=== PATIENT | female | born 1985 | race Asian ===

== ENCOUNTER 2016-12-23 14:38 | Outpatient (CLI) | payer OTHER ==
[2016-12-23 15:34] LABS: BASOPHILS # (AUTO) 0.1 10^3/uL (0.0-0.1); BASOPHILS % (AUTO) 0.8 %; EOSINOPHILS % (AUTO) 0.2 %; HCT - HEMATOCRIT 37.2 % (37.0-47.0); HGB - HEMOGLOBIN 13.2 g/dL (12.0-16.0); LYMPHOCYTES % (AUTO) 18.6 %; MEAN CORPUSCULAR HGB CONC 35.5 g/dL (32.0-36.0); MEAN CORPUSCULAR VOLUME 87.4 fL (81.0-99.0); MEAN PLATELET VOLUME 8.5 fL (7.9-10.8); MONOCYTES # (AUTO) 0.8 10^3/uL (0.0-1.0); NEUTROPHILS # (AUTO) 7.9 10^3/uL (1.5-6.6); NEUTROPHILS % (AUTO) 73.4 %; RED BLOOD COUNT 4.26 10^6/uL (4.20-5.40); RED CELL DISTRIBUTION WIDTH 13.1 % (12.0-15.0); UNCORRECTED WHITE BLOOD COUNT 10.8 x10^3/uL; WHITE BLOOD COUNT 10.8 x10^3/uL (4.8-10.8)
[2016-12-23 15:37] LABS: BILIRUBIN,URINE NEGATIVE (NEGATIVE); PH,URINE 7.5 PH (5.0-7.5)
[2016-12-23 15:44] LABS: WBC,URINE 0-3 /HPF (0-5)
[2016-12-29 20:01] LABS: TEST RESULT REPORT (())
== END 2016-12-23 14:39 | disposition home or self-care (01) ==
LOC: LAB 14:38
PROVIDERS: ATTEND Obstetrics & Gynecology
DX: Z36 Encounter for antenatal screening of mother (principal)
CPT/HCPCS: 36415; 81001; 81599; 85025; 86762; 86780; 86850; 86900; 86901; 87340; 87389

== ENCOUNTER 2017-01-17 11:20 | Outpatient (CLI) | payer OTHER ==
[2017-01-21 17:46] LABS: TEST RESULT REPORT (())
== END 2017-01-17 11:21 | disposition home or self-care (01) ==
LOC: LAB 11:20
PROVIDERS: ATTEND Obstetrics & Gynecology
DX: Z36 Encounter for antenatal screening of mother (principal)
CPT/HCPCS: 36415; 81599; 84163

== ENCOUNTER 2017-02-14 11:47 | Outpatient (CLI) | payer OTHER ==
[2017-02-21 14:11] LABS: TEST RESULT REPORT (())
== END 2017-02-14 11:48 | disposition home or self-care (01) ==
LOC: LAB 11:47
PROVIDERS: ATTEND Obstetrics & Gynecology
DX: Z36 Encounter for antenatal screening of mother (principal)
CPT/HCPCS: 36415; 81511; 81599; 84163

== ENCOUNTER 2017-03-14 12:17 | Outpatient (CLI) | payer OTHER ==
--- NOTE | 2017-03-15 10:55 | Ultrasound Report ---
OB ULTRASOUND: 03/14/2017 CLINICAL INDICATION: anatomy. TECHNIQUE: Real-time scanning was performed with accounts receivable representative static images obtained. LAST MENSTRUAL PERIOD 10/25/2016 Clinical Age 20 weeks 0 days US Age 19 weeks 3 days EFW Hadlock 304 g EFW% Hadlock --- Heart Rate 150 bpm EDC 08/01/2017 US EDC 08/05/2017 BPD [place] 19 weeks 1 day; Mean mm 43.4 HC [place] 19 weeks 0 days; Mean mm 161.5 AC [place] 20 weeks 1 day; Mean mm 149.1 FL Hadlock 19 weeks 2 days; Mean mm 29.9 Presentation breech Placental Location posterior Cervical Length 4.6 cm Amniotic Fluid 13.8 cm FINDINGS: There is a single viable intrauterine gestation, in breech presentation. heart rate is 150 BPM. The placenta is posterior, and low lying. Amniotic fluid volume is normal, with an ALDO of 13.8. By size, the fetus measures 19.5 weeks (20.0 weeks by LMP). The following anatomic structures were visualized and appear normal: The intracranial contents, including the ventricles and posterior fossa; the orbits; the spine; the heart, including 4 chamber view and outflow tracts, and diaphragm; the abdominal contents, including the stomach , the bilateral kidneys, and urinary bladder, as well as a normal 3 vessel cord insertion; 4 limbs. Visualization of the nose and lips is limited by positioning. No free fluid or adnexal lesion is appreciated. IMPRESSION: SINGLE VIABLE INTRAUTERINE GESTATION, MEASURING 19.5 WEEKS BY SIZE. LIMITED VISUALIZATION OF THE NOSE AND LIPS, DUE TO POSITIONING. POSTERIOR , LOW LYING PLACENTA. THIS SHOULD BE REEVALUATED IN THE THIRD TRIMESTER. MTDD
== END 2017-03-14 12:18 | disposition home or self-care (01) ==
LOC: DI 12:17
PROVIDERS: ATTEND Obstetrics & Gynecology
DX: Z34.82 Encounter for supervision of other normal pregnancy, second trimester (principal)
CPT/HCPCS: 76811

== ENCOUNTER 2017-04-11 11:17 | Outpatient (CLI) | payer OTHER | END 2017-04-11 11:18 | disposition home or self-care (01) | LOC: LAB 11:17 | PROVIDERS: ATTEND Obstetrics & Gynecology | DX: Z36 Encounter for antenatal screening of mother (principal) | CPT/HCPCS: 36415; 82950; 86850 ==

== ENCOUNTER 2017-04-12 08:40 | Outpatient (CLI) | payer OTHER ==
[2017-04-12 10:24] LABS: HCT - HEMATOCRIT 35.8 % (37.0-47.0); HGB - HEMOGLOBIN 12.2 g/dL (12.0-16.0); MEAN CORPUSCULAR HEMOGLOBIN 31.2 pg (27.0-31.0); MEAN CORPUSCULAR HGB CONC 34.2 g/dL (32.0-36.0); MEAN CORPUSCULAR VOLUME 91.3 fL (81.0-99.0); MEAN PLATELET VOLUME 7.6 fL (7.9-10.8); RED BLOOD COUNT 3.92 10^6/uL (4.20-5.40); RED CELL DISTRIBUTION WIDTH 13.1 % (12.0-15.0); WHITE BLOOD COUNT 10.8 x10^3/uL (4.8-10.8)
== END 2017-04-12 08:41 | disposition home or self-care (01) ==
LOC: LAB 08:40
PROVIDERS: ATTEND Obstetrics & Gynecology
DX: Z36 Encounter for antenatal screening of mother (principal)
CPT/HCPCS: 36415; 82950; 86850

== ENCOUNTER 2017-04-19 11:12 | Outpatient (CLI) | payer OTHER ==
--- NOTE | 2017-04-19 16:45 | Ultrasound Report ---
FOLLOWUP OB ULTRASOUND: 04/19/2017 HISTORY: Followup placenta location. Prior ultrasound with limited imaging of the facial structures . TECHNIQUE: Real-time scanning was performed with commercial representative static images obtained. Last menstrual period 10/25/2016, EGA 25 weeks 1 day, KAYLEE 08/01/2017. First ultrasound 03/14/2017, EGA 24 weeks 4 days, KAYLEE 08/05/2017. Composite ultrasound measurements today 24 weeks 6 days, KAYLEE 08/03/2017. Single intrauterine gestation, cephalic presentation with cardiac activity 139 BPM. Posterior placen ta without previa. Amniotic fluid volume 13.6 cm, MVP 4.4 cm. biometry today: Biparietal diameter 25 weeks 4 days, head circumference 25 weeks 1 day, abdome n circumference 24 weeks 3 days, femur length 24 weeks 0 days. Estimated weight 32nd percentil e. The nose and lips are well seen today and no anomalies are detected. The inferior edge of the posterior placenta lies approximately 8.2 cm from the internal cervical os. IMPRESSION: SINGLE INTRAUTERINE GESTATION. AGE BY COMPOSITE ULTRASOUND MEASUREMENTS TODAY 24 WEEKS 6 DAYS CONCORDANT WITH BOTH LAST MENSTRUAL PERIOD AND THE FIRST ULTRASOUND. PLACENTA IS POSTERIOR WI TH ITS INFERIOR MARGIN 8.2 CM AWAY FROM THE INTERNAL CERVICAL OS. NOSE AND LIPS ARE WELL SEEN TODAY AND ARE UNREMARKABLE. JOB #: [id number] EXT JOB #:[id number]
== END 2017-04-19 11:13 | disposition home or self-care (01) ==
LOC: DI 11:12
PROVIDERS: ATTEND Obstetrics & Gynecology
DX: Z36 Encounter for antenatal screening of mother (principal); Z3A.24 24 weeks gestation of pregnancy
CPT/HCPCS: 76816

== ENCOUNTER 2017-05-09 08:00 | Outpatient (CLI) | payer OTHER | END 2017-05-09 08:01 | disposition home or self-care (01) | LOC: LAB.R 08:00 | PROVIDERS: ATTEND Obstetrics & Gynecology | DX: Z3A.28 28 weeks gestation of pregnancy (principal) | CPT/HCPCS: 87491; 87591 ==

== ENCOUNTER 2017-07-04 10:45 | Outpatient (CLI) | payer OTHER | END 2017-07-04 10:46 | disposition home or self-care (01) | LOC: LAB.R 10:45 | PROVIDERS: ATTEND Obstetrics & Gynecology | DX: Z36.89 Encounter for other specified antenatal screening (principal) | CPT/HCPCS: 87081 ==